=== PATIENT | female | born 1980 | race Caucasian/White ===

== ENCOUNTER 2016-06-26 09:13 | Emergency (ER) | payer MEDICAID ==
[~2016-06-26] VITALS: Ht 160 cm; Wt 81.6 kg
[2016-06-26 09:17] VITALS: BP 121/68
--- NOTE | 2016-06-26 09:25 | NUR ---
Pt ambulated to bed 4.
--- NOTE | 2016-06-26 09:29 | NUR ---
PATIENT PRESENTS TO ED WITH EPIGASTRIC PAIN SINCE 6PM LAST NIGHT, CONSTANT CRAMPING . DENIES N/V/D; SKIN IS PINK/WARM/DRY; AAOX4 WITH EVEN AND STEADY GAIT; LUNGS CLEAR BL; HR EVEN AND REGULAR; PT DENIES ANY FEVER, CP, SOB, OR COUGH AT THIS TIME; PATIENT STATES PAIN OF 8/10 AT THIS TIME; VSS; PATIENT POSITIONED FOR COMFORT; HOB ELEVATED; BEDRAILS UP X2; BED DOWN. ER MD MADE AWARE OF PT STATUS.
--- NOTE | 2016-06-26 09:57 | NUR ---
DR. STILES EVALUATING PATIENT AT BEDSIDE.
[2016-06-26] MEDS ORDERED: NACL 0.9% 1,000 ML IV SCH (10:02)
[2016-06-26] MEDS ORDERED: ONDANSETRON 4 MG/2 ML VIAL IVP ONE (10:05)
[2016-06-26] MEDS ORDERED: KETOROLAC 30 MG/ML VIAL IVP ONE (10:05)
[2016-06-26] MEDS ORDERED: MORPHINE SULFATE 4 MG/ML SYR IVP ONE (10:45)
[2016-06-26 11:41] VITALS: BP 129/69
--- NOTE | 2016-06-26 11:42 | NUR ---
Patient discharged with v/s stable. Written and verbal after care instructions given and explained. Patient alert, oriented and verbalized understanding of instructions. Ambulatory with steady gait. All questions addressed prior to discharge. ID band removed. Patient advised to follow up with PMD. Rx of ZOFRAN, NORCO, CIPRO, AND MOTRIN given. Patient educated on indication of medication including possible reaction and side effects. Opportunity to ask questions provided and answered.
== END 2016-06-26 11:42 | disposition home or self-care (01) ==
LOC: MED 09:13
DX: N39.0 Urinary tract infection, site not specified (principal); Z90.49 Acquired absence of other specified parts of digestive tract
CPT/HCPCS: 36415; 80053; 81001; 81025; 83690; 85025; 87086; 96361; 96374; 96375; 99284; J1885; J2270; J2405; J7030

== ENCOUNTER 2021-11-24 04:01 | Emergency (ER) | payer SELFPAY ==
[~2021-11-24] VITALS: Ht 160 cm; Wt 79.5 kg
[2021-11-24 04:05] VITALS: BP 100/61
--- NOTE | 2021-11-24 04:08 | NUR ---
PT TAKEN TO BED 01.
--- NOTE | 2021-11-24 04:30 | NUR ---
XRAY AT BEDSIDE
--- NOTE | 2021-11-24 04:35 | NUR ---
41 Y.O. F BIB SELF C/O 03/04 ABD PAIN X6HRS. HASNT HAD BM IN ABOUT 2WKS. "FEELS LIKE CONTRACTIONS". +BLOATED. PT STATED SHE FEELS LIKE SHE HAS TONS OF GAS. HAS SOME NAUSEA AND HEARTBURN RIGHT NOW. NO V/D, SOB NOR CHEST PAIN. PT TOOK IBUPROFEN BETWEEN [id number] LAST NIGHT. A&OX4, SKIN INTACT, VITALS WNL, NO PROBLEMS URINATING AND STEADY GAIT. DENIES HX, RX ALLERGY TO LATEX
[2021-11-24] MEDS ORDERED: MAGNESIUM CITRATE 300 ML BTL PO ONE (04:40)
[2021-11-24] MEDS ORDERED: LORazepam 1 MG TAB PO ONE (05:00)
[2021-11-24] MEDS ORDERED: CEPH-588 PO (05:03)
[2021-11-24] MEDS ORDERED: KETO10TA2 PO (05:03)
[2021-11-24] MEDS ORDERED: cephALEXin 500 MG CAP PO ONE (05:05)
[2021-11-24] MEDS ORDERED: KETOROLAC 60 MG/2 ML VIAL IM ONE (05:05)
[2021-11-24] MEDS ORDERED: ONDANSETRON 4 MG TAB PO ONE (05:20)
[2021-11-24] MEDS ORDERED: MORPHINE SULFATE 4 MG/ML SYR IVP ONE ×2 (05:35→06:35)
[2021-11-24] MEDS ORDERED: ONDANSETRON 4 MG/2 ML VIAL IVP ONE (05:35)
[2021-11-24] MEDS ORDERED: NACL 0.9% 1,000 ML IV ONE (05:35)
[2021-11-24 06:17] LABS: BASOPHILS # (AUTO) 0.1 K/uL (0.00-0.22); BASOPHILS % (AUTO) 0.8 % (0.0-2.0); EOSINOPHILS # (AUTO) 0.1 K/uL (0-0.4); EOSINOPHILS % (AUTO) 1.1 % (0.0-4.0); HEMATOCRIT 25.4 % (36-48); HEMOGLOBIN 7.8 g/dL (12.0-16.0); LYMPHOCYTES # (AUTO) 2.2 K/uL (2.5-16.5); LYMPHOCYTES % (AUTO) 18.6 % (20.5-51.1); MEAN CORPUSCULAR HEMOGLOBIN 19 pg (27-31); MEAN CORPUSCULAR HGB CONC 31 g/dL (33-37); MEAN CORPUSCULAR VOLUME 61.2 fL (80-94); MONOCYTES # (AUTO) 0.7 K/uL (0.8-1.0); MONOCYTES % (AUTO) 6.2 % (1.7-9.3); NEUTROPHILS # (AUTO) 8.7 K/uL (1.8-7.7); NEUTROPHILS % (AUTO) 73.3 % (42.2-75.2); PLATELET COUNT (AUTO) 337 K/uL (140-450); RED BLOOD CELL COUNT(AUTO) 4.14 MIL/uL (4.20-5.40); RED CELL DISTRIBUTION WIDTH 19.6 % (11.6-13.7); WHITE BLOOD COUNT (AUTO) 11.8 K/uL (4.8-10.8)
[2021-11-24] MEDS ORDERED: DICYCLOMINE HCL LIQUID 20 MG, ALUMINUM HYD/MAG/SIMETHICONE 30 ML, LIDOCAINE VISCOUS 2% ... PO ONE ×3 (07:10)
[2021-11-24] MEDS ORDERED: SIMETHICONE 40 MG/0.6 ML PO ONE (07:10)
[2021-11-24] MEDS ORDERED: SIMETHICONE 40 MG/0.6 ML ONE (07:14)
[2021-11-24 07:16] LABS: ALBUMIN 3.3 g/dL (3.4-5.0); CARBON DIOXIDE 27.6 mmol/L (21-32); CREATININE 0.5 mg/dL (0.6-1.3); POTASSIUM 3.6 mmol/L (3.5-5.1); TOTAL BILIRUBIN 0.3 mg/dL (0.0-1.0)
--- NOTE | 2021-11-24 07:20 | NUR ---
REPORT RECEIVED FROM TERESA GIBSON, RECEIVED PT AWAKE AND ALERT, VERBALIZING PAIN 10/10 IN HER ABDOMEN. GIVEN MEDICATION REFER TO EMAR
--- NOTE | 2021-11-24 07:24 | NUR ---
PT AMBULATED TO BATHROOM WITH STEADY GAIT
--- NOTE | 2021-11-24 07:34 | NUR ---
PT TAKEN TO CT
--- NOTE | 2021-11-24 11:00 | NUR ---
ALL RESULTS BACK AND NOTED BY ERMD AND FOR D/C
[2021-11-24 11:07] VITALS: BP 119/78
--- NOTE | 2021-11-24 11:07 | NUR ---
Patient discharged with v/s stable. Written and verbal after care instructions given and explained. Patient alert, oriented and verbalized understanding of instructions. Ambulatory with steady gait. All questions addressed prior to discharge. ID band removed. Patient advised to follow up with PMD. Rx of KEFLEX, TORADOL TABLET given. Patient educated on indication of medication including possible reaction and side effects. Opportunity to ask questions provided and answered.
== END 2021-11-24 11:08 | disposition home or self-care (01) ==
LOC: MED 04:01
DX: R10.84 Generalized abdominal pain (principal); N39.0 Urinary tract infection, site not specified; K59.00 Constipation, unspecified; Z79.899 Other long term (current) drug therapy; Z91.040 Latex allergy status
CPT/HCPCS: 36415; 74018; 74177; 80053; 81002; 81025; 85025; 96372; 96374; 96375; 96376; 99285; J1885; J2270; J2405; Q0092; Q0162; Q9967; J7030

== ENCOUNTER 2023-06-30 10:23 | Emergency (ER) | payer MEDICAID ==
[~2023-06-30] VITALS: Ht 162.6 cm; Wt 73.0 kg
[~2023-06-30 10:23] MED LIST: CEPH-588 PO; KETO10TA2 PO
[2023-06-30 11:15] VITALS: BP 135/101; PULSE 74; RESP 16; TEMP 97.8; O2SAT 100
[2023-06-30] MEDS ORDERED: KETOROLAC 30 MG/ML VIAL IM ONE (12:20)
[2023-06-30] MEDS ORDERED: CYCL-711 PO (13:41)
[2023-06-30] MEDS ORDERED: LID5T TP (13:41)
[2023-06-30] MEDS ORDERED: NAPR-54 PO (13:41)
== END 2023-06-30 14:23 | disposition home or self-care (01) ==
LOC: MED 10:23
DX: S43.401A Unspecified sprain of right shoulder joint, initial encounter (principal); S83.91XA Sprain of unspecified site of right knee, initial encounter; Z79.899 Other long term (current) drug therapy; Z79.1 Long term (current) use of non-steroidal anti-inflammatories (NSAID); Z79.2 Long term (current) use of antibiotics; Z91.040 Latex allergy status; W01.0XXA Fall on same level from slipping, tripping and stumbling without subsequent striking against object, initial encounter; Y92.89 Other specified places as the place of occurrence of the external cause; Y93.89 Activity, other specified; Y99.8 Other external cause status
CPT/HCPCS: 29505; 73030; 73502; 96372; 99284; J1885